=== PATIENT | female | born 1955 | race Caucasian/White ===

== ENCOUNTER 2018-12-08 16:26 | Emergency (ER) | payer BC, OTHER ==
[~2018-12-08] VITALS: Ht 172.7 cm; Wt 100.2 kg
[~2018-12-08 16:26] MED LIST: LISINOPRIL10 MG PO; METFORMIN HCL500 MG PO
[2018-12-08] MEDS ORDERED: DOCUSATE SODIUM LIQD 100 MG/10 ML UDC NG ONE (17:30)
[2018-12-08] MEDS ORDERED: DOCUSATE SODIUM LIQD 100 MG/10 ML UDC ONE (17:37)
== END 2018-12-08 19:10 | disposition home or self-care (01) ==
LOC: FSED 16:26
DX: H61.23 Impacted cerumen, bilateral (principal); I10 Essential (primary) hypertension; E11.65 Type 2 diabetes mellitus with hyperglycemia; E78.5 Hyperlipidemia, unspecified; Z86.73 Personal history of transient ischemic attack (TIA), and cerebral infarction without residual deficits; Z79.84 Long term (current) use of oral hypoglycemic drugs; Z79.82 Long term (current) use of aspirin
CPT/HCPCS: 99283